=== PATIENT | female | born 1990 | race American Indian/Alaskan Native ===

== ENCOUNTER 2017-11-29 16:40 | Outpatient (CLI) | payer MEDICAID ==
[2017-11-29 17:16] VITALS: BP 110/62
--- NOTE | 2017-11-29 19:04 | Ultrasound Report ---
FINAL REPORT EXAM: US OB BPP WO NON-STRESS HISTORY: well being, DANIAL TECHNIQUE: Ultrasound examination of the gravid uterus for biophysical profile evaluation of the fetus PRIORS: Ob ultrasound 11/29/2017 FINDINGS: There is a single viable intrauterine with documented cardiac activity. The amniotic fluid volume is normal. heart rate: 143 and 147 bpm Amniotic fluid index: 9.0 cm position: Cephalic Placental position: Anterior, grade 2 Evaluation for biophysical profile yields the following score as reported by technologist from real-time exam: respiratory motion (minimum one episode): 2 Gross body movement (minimum 3 movements): 2 tone (minimum one flexion and extension): 2 Amniotic fluid volume (at least 2 cm pocket in vertical diameter): 2 IMPRESSION: Single viable intrauterine with 8/8 biophysical profile score during the sonographic evaluation
--- NOTE | 2017-11-30 00:21 | Ultrasound Report ---
FINAL REPORT EXAM: US OB LIMITED HISTORY: well being, DANIAL TECHNIQUE: A limited OB sonogram was obtained for evaluation of a biophysical profile. FINDINGS: For breathing movements, a total score of 2 out of 2 was obtained. For movements, a total score of 2 out of 2 was obtained. For posture and tone, a total score of 2 out of 2 was obtained. For qualitative amniotic fluid volume, a total score of 2 out of 2 was obtained. The total biophysical profile score is 8 out of 8. The heart rate is 143 BPM. IMPRESSION: Biophysical profile score of 8 out of 8. heart is 143 BPM.
== END 2017-11-29 18:50 | disposition home or self-care (01) ==
LOC: TRG 16:40
PROVIDERS: ATTEND Obstetrics & Gynecology
DX: O48.0 Post-term pregnancy (principal); Z3A.40 40 weeks gestation of pregnancy
CPT/HCPCS: 59025; 76815; 76819

== ENCOUNTER 2017-12-03 20:36 | Inpatient (IN) | payer MEDICAID ==
[2017-12-03] MEDS ORDERED: CERVIDIL VG ONE (22:24)
[2017-12-03 22:46] LABS: Hematocrit 27.5 % (30.3-42.9); Hemoglobin 9.6 gm/dl (10.1-14.3); Mean Corpuscular HGB Conc 35 % (30-34); Mean Corpuscular Hemoglobin 30 pg (28-32); Mean Corpuscular Volume 87 fl (79-97); Platelet Count 226 K/mm3 (140-440); Red Blood Count 3.15 M/mm3 (3.65-5.03); Red Cell Distribution Width 19.9 % (13.2-15.2)
[2017-12-03] MEDS ORDERED: LACTATED RINGERS 1,000 ML IV SCH (23:00)
[2017-12-04] MEDS: STADOL IV PRN ×2 (02:58→12:23)
--- NOTE | 2017-12-04 08:12 | History and Physical Report ---
History of Present Illness Date of examination: 12/04/17 Date of admission: 12/03/17 20:36 Chief complaint: Induction of labor History of present illness: Pt is a 26yo BF EDC 12/03/17; EGA 40 1/7 weeks presents for induction of labor. She received care at [facility] since 13 weeks and course has been unremarkable. records are available and GBS is Negative. Past History Past Medical History: no pertinent history Past Surgical History: no surgical history Family/Genetic History: none Social history: no significant social history, - Obstetrical History Expected Date of Delivery: 12/03/17 Actual Gestation: 40 Week(s) 1 Day(s) : 4 Medications and Allergies Allergies Allergy/AdvReac Type Severity Reaction Status Date / Time No Known Allergies Allergy Verified 12/03/17 22:19 Home Medications Medication Instructions Recorded Confirmed Last Taken Type No Known Home Medications [No 12/03/17 12/03/17 Unknown History Reported Home Medications] Active Meds: Active Medications Butorphanol Tartrate (Stadol) 2 mg IV Q2H PRN PRN Reason: Labor Pain Last Admin: 12/04/17 02:58 Dose: 2 mg Fentanyl (Sublimaze) 100 mcg IV Q2H PRN PRN Reason: Labor pain Lactated Ringer's (Lactated Ringers) 1,000 mls @ 125 mls/hr IV DIRECT CECILIO Last Admin: 12/04/17 02:00 Dose: 125 mls/hr Influenza Virus Vaccine Quadrival (Fluarix Quad [id number](36 Mos+) 0.5 ml IM .ONCE ONE Stop: 12/04/17 12:01 Review of Systems All systems: negative - Vital Signs Vital signs: Vital Signs Pulse BP 101 H 100/60 12/03/17 21:05 12/03/17 21:05 Temp Pulse Resp BP Pulse Ox 98.6 F 71 18 100/60 98 12/03/17 21:18 12/04/17 06:18 12/04/17 03:28 12/03/17 21:18 12/04/17 06:18 - Physical Exam Breasts: Positive: deferred Cardiovascular: Regular rate Lungs: Positive: Clear to auscultation Abdomen: Positive: normal appearance Vagina: Positive: normal moisture Uterus: Positive: enlarged Extremities: Positive: normal - Obstetrical FHR: category 1 Uterine Contraction Monitor Mode: External Cervical Dilatation: 1 Cervical Effacement Percentage: 50 station: -3 Uterine Contraction Pattern: Irregular Uterine Tone Measurement Phase: Contraction Uterine Contraction Intensity: Mild Results Result Diagrams: 12/03/17 22:00 Abnormal lab results 12/03/17 Range/Units 22:00 RBC 3.15 L (3.65-5.03) M/mm3 Hgb 9.6 L (10.1-14.3) gm/dl Hct 27.5 L (30.3-42.9) % MCHC 35 H (30-34) % RDW 19.9 H (13.2-15.2) % All other labs normal. Assessment and Plan - Patient Problems (1) 41 weeks gestation of Onset Date: 12/04/17 Current Visit: Yes Status: Acute Plan to address problem: A: IUP @ 40 1/7 weeks P: Admit to L&D for Cervidel/pitocin induction of labor Expectant vaginal delivery
[2017-12-04] MEDS: SUBLIMAZE IV PRN ×2 (11:21→14:04)
[2017-12-04] MEDS ORDERED: PITOCin/NS 20 UNIT/1000ML DRIP 20,000 MILLIUNITS/1,000 ML BAG IV ONE (11:27)
[2017-12-04] MEDS ORDERED: Fluarix Quad 2017-2018(36 MOS+ IM ONE (12:00)
[2017-12-04] MEDS ORDERED: PITOCin/NS 30 UNIT/500ML 30 UNITS/500 ML BAG IV SCH ×2 (12:00→13:00)
[2017-12-04] MEDS ORDERED: ePHEDrine SULFATE IV PRN (12:14)
[2017-12-04] MEDS ORDERED: XYLOCAINE 2% INFILTRATI ONE ×2 (12:14→15:40)
[2017-12-04] MEDS ORDERED: SUBLIMAZE IV PRN (12:14)
[2017-12-04] MEDS ORDERED: BRETHINE SUB-Q PRN (12:14)
[2017-12-04] MEDS ORDERED: MINERAL OIL PO PRN (12:14)
[2017-12-04] MEDS ORDERED: BRETHINE IVP PRN (12:14)
[2017-12-04] MEDS ORDERED: ZOFRAN IV PRN ×2 (12:14→15:56)
[2017-12-04] MEDS ORDERED: NARCAN 0.4 MG/1 ML IV PRN (12:14)
[2017-12-04] MEDS ORDERED: PITOCin/NS 20 UNIT/1000ML DRIP 20 UNITS/1,000 ML BAG IV SCH ×2 (13:00→16:00)
[2017-12-04] MEDS ORDERED: LACTATED RINGERS 1,000 ML IV SCH (13:00)
--- NOTE | 2017-12-04 15:55 | Procedure Note ---
OB Delivery Note - Delivery Date of Delivery: 12/04/17 Surgeon: BERT SEAY Estimated blood loss: 200cc - Vaginal Delivery presentation: vertex Delivery position: OA Intrapartum events: shoulder dystocia Delivery induction: cervidil Delivery augmentation: rupture of membranes, pitocin Delivery monitor: external FHT, external uterine Route of delivery: Delivery placenta: spontaneous Delivery cord: nuchal cord (x1), 3 umbilical vessels Episiotomy: none Delivery laceration: 2nd degree (perineal) Delivery repair: vicryl Anesthesia: local Delivery comments: delivered OA with brief shoulder dystocia resolved with suprapubic pressure, and infant placed on Mom's chest for [id number] bonding and delayed cord clamping. - Infant A at 1 minute: 7 at 5 minutes: 9 Gender: Female ([id number])
[2017-12-04] MEDS ORDERED: LANSINOH TP PRN (15:56)
[2017-12-04] MEDS ORDERED: PHENERGAN PR PRN (15:56)
[2017-12-04] MEDS ORDERED: BENADRYL PO PRN (15:56)
[2017-12-04] MEDS ORDERED: MILK OF MAGNESIA PO PRN (15:56)
[2017-12-04] MEDS ORDERED: PHENERGAN PO PRN (15:56)
[2017-12-04] MEDS ORDERED: TUCKS PAD TP PRN (15:56)
[2017-12-04] MEDS ORDERED: DULCOLAX PR PRN (15:56)
[2017-12-04] MEDS ORDERED: TYLENOL PO PRN (15:56)
[2017-12-04] MEDS ORDERED: SENOKOT S PO SCH (16:00)
[2017-12-04] MEDS ORDERED: SODIUM CHLORIDE FLUSH SYRINGE 10 ML IV NR (16:00)
[2017-12-04] MEDS: MOTRIN PO SCH (17:35)
[2017-12-04] MEDS: NORCO 5/325 PO PRN (21:01)
[2017-12-04] MEDS: COLACE PO SCH (21:02)
[2017-12-04] MEDS: FEOSOL PO SCH (21:02)
[2017-12-05] MEDS: NORCO 5/325 PO PRN ×3 (04:07→23:26)
[2017-12-05] MEDS: MOTRIN PO SCH ×4 (04:08→23:23)
[2017-12-05 04:41] LABS: Hematocrit 29.9 % (30.3-42.9); Hemoglobin 10.7 gm/dl (10.1-14.3)
--- NOTE | 2017-12-05 08:43 | Progress Note ---
Assessment and Plan - Patient Problems (1) 41 weeks gestation of Onset Date: 12/04/17 Current Visit: Yes Status: Resolved (2) (normal spontaneous vaginal delivery) Onset Date: 12/05/17 Current Visit: Yes Status: Resolved Plan to address problem: A: S/P - PPD #1 Asymptomatic anemia - stable P: Continue routine care May go home tomorrow Subjective - Subjective Date of service: 12/05/17 Principal diagnosis: s/p - PPD #1 Interval history: Pt is feeling well, bleeding improved. Patient reports: appetite normal, voiding normally, pain well controlled, flatus , ambulating normally [place]: doing well, bottle feeding Objective - Vital Signs Latest vital signs: Vital Signs Temp Pulse Resp BP BP Pulse Ox 12/05/17 01:00 98.2 F 85 18 105/56 98 12/04/17 19:50 98.2 F 75 18 99/49 98 12/04/17 18:00 98.3 F 69 18 115/66 12/04/17 17:35 20 12/04/17 17:30 97.5 F L 20 12/04/17 17:15 66 115/58 12/04/17 17:00 67 118/62 12/04/17 16:30 86 122/57 12/04/17 16:15 77 115/56 12/04/17 15:57 83 119/60 12/04/17 15:47 80 116/56 12/04/17 15:27 81 119/58 12/04/17 14:58 80 111/56 12/04/17 14:53 97.5 F L 20 12/04/17 14:04 18 12/04/17 12:53 18 12/04/17 12:23 18 12/04/17 11:53 89 107/68 12/04/17 11:50 97.6 F 20 Intake and Output 12/04/17 12/05/17 12/05/17 22:59 06:59 14:59 Intake Total 120 240 Output Total 300 400 Balance -180 -160 Intake: Oral 120 240 Output: Urine 300 400 Void 300 400 Other: Total, Intake Amount 120 120 Total, Output Amount 300 400 # Voids Void 1 Estimated Blood Loss 200 - Exam Breasts: Present: deferred Cardiovascular: Present: Regular rate Lungs: Present: Clear to auscultation Abdomen: Present: normal appearance, soft Uterus: Present: normal, firm, fundal height below umbilicus Extremities: Present: normal - Labs Labs: Abnormal lab results 12/05/17 Range/Units 04:26 Hct 29.9 L (30.3-42.9) % Laboratory Tests 12/03/17 12/03/17 12/05/17 22:00 22:00 04:26 WBC 10.8 RBC 3.15 L Hgb 9.6 L 10.7 Hct 27.5 L 29.9 L MCV 87 MCH 30 MCHC 35 H RDW 19.9 H Plt Count 226 Hep Bs Antigen Blood Type A POSITIVE Antibody Screen Negative 12/05/17 04:26 WBC RBC Hgb Hct MCV MCH MCHC RDW Plt Count Hep Bs Antigen Non-reactive Blood Type Antibody Screen
--- NOTE | 2017-12-05 09:01 | Discharge Summary ---
Providers - Providers Date of Admission: 12/03/17 20:36 Date of discharge: 12/06/17 Attending physician: BERT SEAY Primary care physician: BERT SEAY Hospitalization Reason for admission: induction of labor, IUP at term Delivery: Episiotomy: none Laceration: 2nd degree (perineal) Other procedures: none complications: none Discharge diagnosis: IUP at term delivered baby: female Hospital course: Unremarkable. Condition at discharge: Good Disposition: DC-01 TO HOME OR SELFCARE - Discharge Diagnoses (1) 41 weeks gestation of Status: Resolved (2) (normal spontaneous vaginal delivery) Status: Resolved Plan - Discharge Medications Prescriptions: Ferrous Sulfate [Feosol 325 MG tab] 325 mg PO BID #60 tablet HYDROcodone/APAP 5-325 [[place] 5-325 mg TAB] 1 each PO Q6H PRN #10 tablet PRN Reason: Pain, Moderate (4-6) Ibuprofen [Motrin 600 MG tab] 600 mg PO Q6H #30 tablet Vit-Fe Fumar-FA [ Vitamin] 1 each PO QDAY #30 tablet - Provider Discharge Summary Activity: routine, no sex for 6 weeks, no heavy lifting 4 weeks, no strenuous exercise Diet: routine Instructions: routine Additional instructions: [] Smoking cessation referral if applicable(refer to patient education folder for contact #) [] Refer to [facility] Booklet Call your doctor immediately for: * Fever > 100.5 * Heavy vaginal bleeding ( >1 pad per hour) * Severe persistent headache * Shortness of breath * Reddened, hot, painful area to leg or breast * Drainage or odor from incision. * Keep incision clean and dry at all times and follow doctor's instructions regarding bathing/showering - Follow up plan Follow up: BERT SEAY MD [Primary Care Provider] - 6 Weeks
[2017-12-05] MEDS: COLACE PO SCH ×2 (10:10→21:38)
[2017-12-05] MEDS: PRENATAL VITAMIN PO SCH (10:10)
[2017-12-05] MEDS: FEOSOL PO SCH ×2 (10:10→21:38)
[2017-12-05] MEDS ORDERED: M-M-R II VACCINE SUB-Q ONE (15:56)
[2017-12-05] MEDS ORDERED: BOOSTRIX IM ONE ×2 (15:56→22:00)
[2017-12-06] MEDS: MOTRIN PO SCH ×3 (05:40→17:04)
[2017-12-06] MEDS: COLACE PO SCH (09:57)
[2017-12-06] MEDS: FEOSOL PO SCH (09:57)
[2017-12-06] MEDS: PRENATAL VITAMIN PO SCH (09:58)
[2017-12-06] MEDS ORDERED: Fluarix Quad 2017-2018(36 MOS+ IM ONE (12:00)
[2017-12-06 17:29] VITALS: BP 98/50
== END 2017-12-06 17:15 | disposition home or self-care (01) | DRG 775 ==
LOC: LD 20:36 → OB 12-04 17:59
PROVIDERS: ADMIT Obstetrics & Gynecology; ATTEND Obstetrics & Gynecology
PROC: 10E0XZZ Delivery of Products of Conception, External Approach (ICD-10-PCS; principal; 2017-12-04)
PROC: 0KQM0ZZ Repair Perineum Muscle, Open Approach (ICD-10-PCS; 2017-12-04)
PROC: 3E0234Z Introduction of Serum, Toxoid and Vaccine into Muscle, Percutaneous Approach (ICD-10-PCS; 2017-12-04)
PROC: 3E0P7VZ Introduction of Hormone into Female Reproductive, Via Natural or Artificial Opening (ICD-10-PCS; 2017-12-04)
DX: O69.81X0 Labor and delivery complicated by cord around neck, without compression, not applicable or unspecified (principal); O66.0 Obstructed labor due to shoulder dystocia; O70.1 Second degree perineal laceration during delivery; O99.02 Anemia complicating childbirth; Z3A.41 41 weeks gestation of pregnancy; Z23 Encounter for immunization; Z37.0 Single live birth
CPT/HCPCS: 36415; 85014; 85018; 85027; 86706; 86850; 86900; 86901; 90471; 90686; 90715; 99211; G0463; J0595; J2590; J3010; J7120